=== PATIENT | female | born 1955 | race Caucasian/White ===

== ENCOUNTER 2020-03-29 16:17 | Emergency (ER) | payer OTHER, SELFPAY ==
[~2020-03-29] VITALS: Ht 167.6 cm; Wt 99.8 kg
--- NOTE | 2020-03-29 16:17 | NUR ---
PT PLACED IN BED 7. REPORT TO TY
--- NOTE | 2020-03-29 16:30 | NUR ---
MD RUIZ ASSESSING PT
[2020-03-29 16:32] VITALS: BP_SYST 147
[2020-03-29] MEDS ORDERED: DEXAMETHASONE SOD PHOSPHATE 10 MG/ML VIAL IVP SCH (16:45)
--- NOTE | 2020-03-29 17:39 | NUR ---
IV ACCESS INSERTED TO THE LEFT AC IN ONE ATTEMPT WITH 20G. BLOOD DRAWN AT SAME TIME.
[2020-03-29] MEDS ORDERED: ONDANSETRON HCL 4 MG/2 ML VIAL IVP ONE (17:45)
[2020-03-29] MEDS ORDERED: NACL 0.9% 1,000 ML IV ONE (17:45)
[2020-03-29] MEDS ORDERED: ONDANSETRON HCL 4 MG/2 ML VIAL ONE (17:46)
[2020-03-29 18:10] LABS: BASOPHILS % (AUTO) 0.2 % (0.0-2.0); CALCIUM 8.5 mg/dL (8.4-11.0); CREATININE 0.97 mg/dL (0.55-1.30); HEMATOCRIT 46.2 % (36-48); HEMOGLOBIN 15.3 g/dL (12.0-16.0); LYMPHOCYTES # (AUTO) 1.4 K/uL (1.0-5.5); LYMPHOCYTES % (AUTO) 17.2 % (20.5-51.5); MEAN CORPUSCULAR HEMOGLOBIN 30 pg (27-31); MEAN CORPUSCULAR HGB CONC 33 % (32-36); MEAN CORPUSCULAR VOLUME 90 fL (79.0-98.0); MONOCYTES # (AUTO) 0.6 K/uL (0.0-1.0); MONOCYTES % (AUTO) 7.5 % (1.7-9.3); NEUTROPHILS # (AUTO) 6.3 K/uL (1.8-7.7); NEUTROPHILS % (AUTO) 75.1 % (40.0-70.0); PLATELET COUNT (AUTO) 232 K/uL (130-430); RED BLOOD CELL COUNT(AUTO) 5.15 MIL/uL (4.2-6.2); WHITE BLOOD COUNT (AUTO) 8.3 K/uL (4.8-10.8)
[2020-03-29 18:17] LABS: ALBUMIN 3.2 g/dL (3.4-4.8); TOTAL BILIRUBIN 0.5 mg/dL (0.0-1.0)
--- NOTE | 2020-03-29 19:29 | NUR ---
Daughter called to give patient update. Pt to be discharge after fluids.
--- NOTE | 2020-03-29 19:30 | NUR ---
HR 91
[2020-03-29 20:08] VITALS: BP_SYST 138
--- NOTE | 2020-03-29 20:08 | NUR ---
Patient given written and verbal discharge instructions and verbalizes understanding. ER MD discussed with patient the results and treatment provided. Patient in stable condition. ID arm band removed. IV catheter removed intact and dressing applied, no active bleeding. Patient educated on pain management and to follow up with PMD. Opportunity for questions provided and answered.
== END 2020-03-29 20:08 | disposition home or self-care (01) ==
LOC: SED 16:17
DX: U07.1 COVID-19 (principal); I10 Essential (primary) hypertension; E11.9 Type 2 diabetes mellitus without complications; E78.5 Hyperlipidemia, unspecified; Z88.8 Allergy status to other drugs, medicaments and biological substances
CPT/HCPCS: 36415; 71045; 74176; 76376; 80053; 83880; 85025; 93005; 96361; 96374; 99285; 96375; J1100; J2405; J7030; Q9967

== ENCOUNTER 2021-03-23 11:09 | Day surgery (SDC) | payer OTHER, SELFPAY ==
[~2021-03-23] VITALS: Ht 167.6 cm; Wt 102.5 kg
[2021-03-23] MEDS ORDERED: MIDAZOLAM HCL 5 MG/ML VIAL (VERSED) IV ONE (11:10)
[2021-03-23] MEDS ORDERED: ONDANSETRON HCL 4 MG/2 ML VIAL IVP ONE (11:10)
[2021-03-23] MEDS ORDERED: PROPOFOL 200MG/ 20ML VIAL (DIPRIVAN) IV ONE (11:10)
[2021-03-23] MEDS ORDERED: ONDANSETRON HCL 4 MG/2 ML VIAL IVP PRN (15:45)
[2021-03-23] MEDS ORDERED: fentaNYL CITRATE/PF 100 MCG/2 ML AMP IVP PRN ×2 (15:45)
[2021-03-23] MEDS ORDERED: METOCLOPRAMIDE HCL 10 MG/2 ML VIAL IVP PRN (15:45)
[2021-03-23 18:56] VITALS: BP_SYST 137
== END 2021-03-23 17:45 | disposition home or self-care (01) ==
LOC: SDS 11:09 → SMU 11:11 → SDS 17:45
PROVIDERS: ATTEND Colon & Rectal Surgery
DX: Z12.11 Encounter for screening for malignant neoplasm of colon (principal); K57.30 Diverticulosis of large intestine without perforation or abscess without bleeding; K29.80 Duodenitis without bleeding; K29.50 Unspecified chronic gastritis without bleeding; K44.9 Diaphragmatic hernia without obstruction or gangrene; K31.7 Polyp of stomach and duodenum; E11.9 Type 2 diabetes mellitus without complications; F32.9 Major depressive disorder, single episode, unspecified; G47.00 Insomnia, unspecified; M06.9 Rheumatoid arthritis, unspecified; K21.9 Gastro-esophageal reflux disease without esophagitis; E78.5 Hyperlipidemia, unspecified; I10 Essential (primary) hypertension; Z90.49 Acquired absence of other specified parts of digestive tract; Z90.710 Acquired absence of both cervix and uterus; Z79.899 Other long term (current) drug therapy; Z20.822 Contact with and (suspected) exposure to COVID-19
CPT/HCPCS: 36415; 43239; 45378; 82962; 87081; 88305; 88313; 93005; G0378; J2250; J2405; J2704; U0003